=== PATIENT | male | born 1945 | race Caucasian/White ===

== ENCOUNTER 2016-10-14 13:36 | Emergency (ER) | payer MEDICARE, BC ==
--- NOTE | 2016-10-16 19:25 | ER ---
ADMIT: 10/14/2016 RM/LOC: ER [facility] MR#: [id number] [facility] [address] [place], [place] [address] [address] [place], [place] [address] Emergency Room Report SEX: M AGE: 71 : 1945 DATE: 10/14/2016 The patient is a 71-year-old male, who came to the emergency room via wheelchair complaining of right flank pain. Prior to coming to the ER at home, he was going over a gate when he tripped, rolled, went down several steps injuring his back. He has a bruising and a right flank and tenderness at the same area in the vertebral body. REVIEW OF SYSTEMS: He does have a skin rash which is consistent with psoriasis, he has back pain now. No loss of consciousness. He is not taking any anticoagulation medication. PAST MEDICAL HISTORY: Recovering alcoholic, prostate cancer, prostatectomy. ALLERGIES: HE IS SENSITIVE TO ASPIRIN AND REQUESTED THAT WE DID NOT GIVE HIM ANY NARCOTICS AT THIS TIME. PHYSICAL EXAMINATION: VITAL SIGNS: Blood pressure 151/92 with a heart rate of 79, respirations 18, temp is 97, and O2 sats 96%. GENERAL: He is mildly anxious. Very pleasant and cooperative. His is at his side. NECK: Nontender. Painless range of motion. HEAD: I do not see any evidence of trauma. EYES: PERRLA. Extraocular muscles are intact. ABDOMEN: Nontender. Upon rolling the patient to the side, he does have a hematoma to the right flank and he also has vertebral point tenderness at T5 and 6. NEUROLOGIC: Intact. Oriented x4. Mood and affect appropriate. EXTREMITIES: Atraumatic. See T sheet for area of trauma in the drawings. CT of the T-spine was done where Dr. Napoles reports positive fracture of transverse process at T5 and 6 as well as posterior fractures. ADMIT: 10/14/2016 RM/LOC: ER [facility] MR#: [id number] [address] [address] [address] [facility] [place] [address] Emergency Room Report SEX: M AGE: 71 : 1945 LABS: Include a white count of 5.9, which is normal. Hemoglobin 14. Urobilinogen in the urine is 2.0 with blood 2+, protein 2+, glucose 30. His GFR is 76. He also has some rbc's in the urine at 517 with wbc's of 8. I think this is more consistent with a contusion to the kidney or the flank area rather than any infection. His AST is 193, ALT is 165. CLINICAL IMPRESSION: At this time, contusion to right flank with fracture of T5-T6 transverse process as well as ribs secondary to fall. Dr. Vazquez was contacted. The patient received ketorolac and with Dr. Vazquez's consent, we are sending home with ketorolac oral and follow up with Dr. Vazquez. Hydration, ice to the area and splinting when he has to laugh or sneeze. Hydration important for the clearance of the blood in his kidney. BRIELLE Juares / Tony Tejeda MD / modl JOB #: [id number] CC: Tony Tejeda MD, Attending Physician
== END 2016-10-14 16:08 | disposition home or self-care (01) ==
LOC: ER 13:36
DX: S22.051A Stable burst fracture of T5-T6 vertebra, initial encounter for closed fracture (principal); S22.41XA Multiple fractures of ribs, right side, initial encounter for closed fracture; S50.311A Abrasion of right elbow, initial encounter; Z85.46 Personal history of malignant neoplasm of prostate; W18.09XA Striking against other object with subsequent fall, initial encounter; Y92.009 Unspecified place in unspecified non-institutional (private) residence as the place of occurrence of the external cause

== ENCOUNTER → 2016-11-01 | Outpatient (CLI) | payer MEDICARE, BC | END | disposition home or self-care (01) | LOC: RAD.S 08:15 | DX: C61 Malignant neoplasm of prostate (principal); I10 Essential (primary) hypertension; K76.0 Fatty (change of) liver, not elsewhere classified ==

== ENCOUNTER → 2017-01-27 | Outpatient (CLI) | payer MEDICARE, BC | END | disposition home or self-care (01) | LOC: RAD.S 08:00 | DX: C61 Malignant neoplasm of prostate (principal); I10 Essential (primary) hypertension; K76.0 Fatty (change of) liver, not elsewhere classified; R59.0 Localized enlarged lymph nodes ==